=== PATIENT | male | born 1945 | race Caucasian/White ===

== ENCOUNTER → 2018-06-29 15:49 | Outpatient (CLI) | payer OTHER, SELFPAY ==
[2018-06-29 16:45] LABS: Hemoglobin A1C% w Est Avg Glu 8.1 % (4.0-6.0)
[2018-06-29 16:59] LABS: Alanine Aminotransferase 24 IU/L (21-72); Albumin 3.9 g/dL (3.5-5.0); Albumin Globulin Ratio 1.3 (1.0-2.8); Alkaline Phosphatase 67 U/L (38-126); Aspartate Aminotransferase 21 IU/L (17-59); BUN Creatinine Ratio 13.1 (6-22); Bilirubin Total 0.8 mg/dL (0.2-1.3); Blood Urea Nitrogen 21 mg/dL (9-20); Calcium 9.4 mg/dL (8.4-10.2); Carbon Dioxide 28 mmol/L (22-32); Chloride 102 mmol/L (98-107); Cholesterol 150 mg/dL (140-199); Estimated Glomerular Filt Rate 42.7 mL/min (>60); Globulin 3.1 g/dL (1.7-4.1); Glucose 185 mg/dL (80-110); HDL Cholesterol 34 mg/dL (40-60); HEMOLYSIS < 15 (0-50); LDL Cholesterol Calculated 82 mg/dL (<100); Potassium 4.8 mmol/L (3.4-5.1); Sodium 142 mmol/L (137-145); Triglycerides 168 mg/dL (35-150)
== END ==
PROVIDERS: Family Provider Family Medicine; PCP Family Medicine; Visit Provider Family Medicine
DX: E11.9 Type 2 diabetes mellitus without complications (principal); E78.2 Mixed hyperlipidemia; I10 Essential (primary) hypertension; I48.91 Unspecified atrial fibrillation; N19 Unspecified kidney failure
CPT/HCPCS: 36415; 80053; 80061; 83036

== ENCOUNTER → 2018-07-05 15:27 | Outpatient (CLI) | payer OTHER, SELFPAY | PROVIDERS: Family Provider Family Medicine; PCP Family Medicine; Visit Provider Family Medicine | DX: R30.0 Dysuria (principal) | CPT/HCPCS: 87086 ==

== ENCOUNTER → 2018-07-05 15:43 | Outpatient (CLI) | payer OTHER, SELFPAY ==
[2018-07-05 17:21] LABS: Prostate Specific Antigen Scrn 1.38 ng/mL (0.1-4.0)
== END ==
PROVIDERS: PCP Family Medicine; Visit Provider Family Medicine
DX: N19 Unspecified kidney failure (principal); Z12.5 Encounter for screening for malignant neoplasm of prostate
CPT/HCPCS: 36415; 87086; G0103

== ENCOUNTER → 2018-10-04 14:51 | Outpatient (CLI) | payer OTHER, SELFPAY ==
[2018-10-04 15:28] LABS: Add Manual Diff / Slide Review NO; Basophils Absolute Auto 100 /uL (0-100); Basophils Percent Auto 0.8 % (0-2); Eosinophils Absolute Auto 300 /uL (0-450); Eosinophils Percent Auto 2.3 % (2-4); Hemoglobin 13.7 g/dL (13.5-17.5); Lymphocytes Absolute Auto 2900 /uL (1100-4500); Lymphocytes Percent Auto 20.7 % (25-40); Mean Corpuscular HGB Conc 33.5 % (30-36); Mean Corpuscular Hemoglobin 29.3 PG (26-34); Mean Corpuscular Volume 87.5 fL (80-100); Monocytes Absolute Auto 1300 /uL (0-900); Monocytes Percent Auto 9.5 % (3-14); Neutrophils Absolute Auto 9300 /uL (1500-7000); Neutrophils Percent Auto 66.7 % (50-75); Platelet Count 235 X10^3/uL (150-400); Red Blood Cell Count 4.69 X10^6/uL (4.5-5.9); Red Cell Distribution Width 14.4 % (11.6-14.8); White Blood Cell Count 13.9 X10^3/uL (4.5-11.0)
[2018-10-04 16:11] LABS: Alanine Aminotransferase 28 IU/L (21-72); Albumin Globulin Ratio 1.2 (1.0-2.8); Alkaline Phosphatase 69 U/L (38-126); Aspartate Aminotransferase 20 IU/L (17-59); BUN Creatinine Ratio 15.3 (6-22); Bilirubin Total 0.9 mg/dL (0.2-1.3); Blood Urea Nitrogen 23 mg/dL (9-20); Calcium 9.4 mg/dL (8.4-10.2); Carbon Dioxide 28 mmol/L (22-32); Chloride 102 mmol/L (98-107); Estimated Glomerular Filt Rate 45.9 mL/min (>60); Globulin 3.3 g/dL (1.7-4.1); Glucose 202 mg/dL (80-110); HEMOLYSIS < 15 (0-50); Sodium 140 mmol/L (137-145); Total Protein 7.3 g/dL (6.3-8.2)
[2018-10-04 16:21] LABS: Potassium 5.5 mmol/L (3.4-5.1)
== END ==
PROVIDERS: Family Provider Family Medicine; PCP Family Medicine; Visit Provider Family Medicine
DX: E11.9 Type 2 diabetes mellitus without complications (principal)
CPT/HCPCS: 36415; 80053; 80162; 83036; 85025

== ENCOUNTER → 2018-11-13 16:22 | Outpatient (CLI) | payer OTHER, SELFPAY ==
--- NOTE | 2018-11-13 16:27 | DI.RAD.S_ITS ---
PROCEDURE: XR KNEE RT 3V INDICATIONS: pain TECHNIQUE: 3 views of the knee were acquired. COMPARISON: [facility], KNEE 1-2 VIEWS RIGHT, 03/04/2009, 16:17. [facility], KNEE 1-2 VIEWS LEFT, 04/16/2008, 16:25. FINDINGS: Bones: No fractures or dislocations. No suspicious bony lesions. Expected postsurgical alignment after right totally arthroplasty. Soft tissues: No joint effusion. No suspicious soft tissue calcifications. IMPRESSION: Normal alignment after right totally arthroplasty. Dictated by: Aidan Saeed M.D. on 11/13/2018 at 17:20 Approved by: Aidan Saeed M.D. on 11/13/2018 at 17:20
--- NOTE | 2018-11-13 16:27 | DI.RAD.S_ITS ---
PROCEDURE: XR KNEE LT 3V INDICATIONS: pain TECHNIQUE: 3 views of the knee were acquired. COMPARISON: [facility], KNEE 1-2 VIEWS RIGHT, 03/04/2009, 16:17. [facility], KNEE 1-2 VIEWS LEFT, 04/16/2008, 16:25. FINDINGS: Bones: No fractures or dislocations. No suspicious bony lesions. Left total knee arthroplasty. Soft tissues: No joint effusion. No suspicious soft tissue calcifications. IMPRESSION: Normal alignment after left total knee arthroplasty. No sign of device loosening or disruption. Dictated by: Aidan Saeed M.D. on 11/13/2018 at 17:20 Approved by: Aidan Saeed M.D. on 11/13/2018 at 17:21
== END ==
PROVIDERS: Family Provider Family Medicine; PCP Family Medicine; Visit Provider Family Medicine
DX: M25.562 Pain in left knee (principal); M25.561 Pain in right knee; Z96.653 Presence of artificial knee joint, bilateral
CPT/HCPCS: 73562

== ENCOUNTER → 2018-11-24 11:13 | Outpatient (CLI) | payer OTHER, SELFPAY ==
--- NOTE | 2018-11-24 11:15 | DI.NM.S_ITS ---
PROCEDURE: NM BONE 3 PHASE RADIOPHARMACEUTICAL: 20.3 mCi Tc-99m MDP IV. INDICATIONS: bilat knee pain TECHNIQUE: Multiple bone scintigrams were obtained after intravenous injection of Tc-99m MDP, including flow, blood pool, and delayed images centered at the bilateral knees. COMPARISON: [facility], CR, XR KNEE LT 3V, 11/13/2018, 16:30. [facility], CR, XR KNEE RT 3V, 11/13/2018, 16:30. FINDINGS: Photopenic defects from knee arthroplasty procedure are present bilaterally. There is normal blood flow and blood pool to the bilateral knees. Delayed uptake of radiotracer at the bilateral knees is within normal limits. IMPRESSION: No explanation for knee pain. No evidence of infection or loosening. Dictated by: Zamzam Wise M.D. on 11/24/2018 at 15:56 Approved by: Zamzam Wise M.D. on 11/24/2018 at 15:58
== END ==
PROVIDERS: PCP Family Medicine; Visit Provider Family Medicine
DX: M25.562 Pain in left knee (principal); M25.561 Pain in right knee; Z96.653 Presence of artificial knee joint, bilateral
CPT/HCPCS: 78315; A9503

== ENCOUNTER → 2019-01-02 15:33 | Outpatient (CLI) | payer OTHER, SELFPAY ==
[2019-01-02 16:28] LABS: Add Manual Diff / Slide Review NO; Basophils Absolute Auto 100 /uL (0-100); Basophils Percent Auto 0.5 % (0-2); Eosinophils Absolute Auto 200 /uL (0-450); Eosinophils Percent Auto 1.6 % (2-4); Hematocrit 37.6 % (41-53); Hemoglobin 12.8 g/dL (13.5-17.5); Lymphocytes Absolute Auto 2600 /uL (1100-4500); Lymphocytes Percent Auto 21.4 % (25-40); Mean Corpuscular HGB Conc 34.2 % (30-36); Mean Corpuscular Hemoglobin 29.7 PG (26-34); Monocytes Absolute Auto 1000 /uL (0-900); Monocytes Percent Auto 8.3 % (3-14); Neutrophils Absolute Auto 8300 /uL (1500-7000); Neutrophils Percent Auto 68.2 % (50-75); Platelet Count 228 X10^3/uL (150-400); Red Blood Cell Count 4.32 X10^6/uL (4.5-5.9); Red Cell Distribution Width 14.3 % (11.6-14.8); White Blood Cell Count 12.2 X10^3/uL (4.5-11.0)
[2019-01-02 16:41] LABS: Hemoglobin A1C% w Est Avg Glu 6.9 % (4.0-6.0)
[2019-01-02 17:00] LABS: BUN Creatinine Ratio 21.2 (6-22); Blood Urea Nitrogen 36 mg/dL (9-20); Calcium 9.4 mg/dL (8.4-10.2); Carbon Dioxide 26 mmol/L (22-32); Chloride 104 mmol/L (98-107); Estimated Glomerular Filt Rate 39.7 mL/min (>60); Glucose 171 mg/dL (80-110); HEMOLYSIS < 15 (0-50); Magnesium 1.7 mg/dL (1.6-2.3); Potassium 4.6 mmol/L (3.4-5.1); Sodium 139 mmol/L (137-145)
== END ==
PROVIDERS: PCP Family Medicine; Visit Provider Family Medicine
DX: I48.91 Unspecified atrial fibrillation (principal)
CPT/HCPCS: 36415; 80048; 83036; 83735; 85025

== ENCOUNTER → 2019-01-10 15:57 | Outpatient (CLI) | payer OTHER, SELFPAY ==
--- NOTE | 2019-01-10 15:59 | DI.RAD.S_ITS ---
PROCEDURE: XR HIP W PEL IF DONE LT 2V INDICATIONS: left hip pain TECHNIQUE: AP pelvis with lateral view(s) of the left hip(s). COMPARISON: [place], [place], MD BONE 3 PHASE, 11/24/2018, 11:19. FINDINGS: Bones: No fractures or dislocations. Pelvic ring appears intact. No suspicious bony lesions. Severe bilateral hip joint degeneration with ulyk-ut-exoo appearance. Lower lumbar spondylosis. Sclerotic focus measuring 2 cm projects in the intertrochanteric right femur, technically non-specific in the absence of prior studies. Soft tissues: The visualized bowel gas pattern is normal. No suspicious soft tissue calcifications. Scattered vascular calcifications bilaterally. IMPRESSION: Severe bilateral hip joint degeneration. Nonspecific proximal right femur intramedullary sclerotic focus. Technically cannot exclude metastatic or malignant possibilities. Dictated by: Peter Rosenberg M.D. on 01/10/2019 at 17:15 Approved by: Peter Rosenberg M.D. on 01/10/2019 at 17:18
== END ==
PROVIDERS: Family Provider Orthopaedic Surgery; PCP Family Medicine; Visit Provider Family Medicine
DX: M25.552 Pain in left hip (principal); M16.0 Bilateral primary osteoarthritis of hip; M47.816 Spondylosis without myelopathy or radiculopathy, lumbar region
CPT/HCPCS: 73502

== ENCOUNTER → 2019-03-02 11:09 | Outpatient (CLI) | payer OTHER, SELFPAY ==
[2019-03-02 12:11] LABS: Add Manual Diff / Slide Review NO; Basophils Absolute Auto 100 /uL (0-100); Basophils Percent Auto 0.4 % (0-2); Eosinophils Absolute Auto 300 /uL (0-450); Eosinophils Percent Auto 2.1 % (2-4); Hemoglobin 12.6 g/dL (13.5-17.5); Lymphocytes Absolute Auto 3200 /uL (1100-4500); Lymphocytes Percent Auto 23.6 % (25-40); Mean Corpuscular Hemoglobin 30.1 PG (26-34); Mean Corpuscular Volume 88.6 fL (80-100); Monocytes Absolute Auto 1600 /uL (0-900); Monocytes Percent Auto 11.6 % (3-14); Neutrophils Absolute Auto 8300 /uL (1500-7000); Neutrophils Percent Auto 62.3 % (50-75); Platelet Count 216 X10^3/uL (150-400); Red Blood Cell Count 4.18 X10^6/uL (4.5-5.9); Red Cell Distribution Width 14.5 % (11.6-14.8); White Blood Cell Count 13.4 X10^3/uL (4.5-11.0)
[2019-03-02 12:16] LABS: Hemoglobin A1C% w Est Avg Glu 6.6 % (4.0-6.0)
[2019-03-02 12:23] LABS: Carbon Dioxide 27 mmol/L (22-32); Chloride 102 mmol/L (98-107); HEMOLYSIS < 15 (0-50); Potassium 4.6 mmol/L (3.4-5.1); Sodium 140 mmol/L (137-145)
[2019-03-02 17:42] LABS: BUN Creatinine Ratio 18.9 (6-22); Blood Urea Nitrogen 34 mg/dL (9-20); Calcium 9.8 mg/dL (8.4-10.2); Carbon Dioxide 26 mmol/L (22-32); Chloride 102 mmol/L (98-107); Estimated Glomerular Filt Rate 37.2 mL/min (>60); Glucose 116 mg/dL (80-110); HEMOLYSIS < 15 (0-50); Potassium 4.7 mmol/L (3.4-5.1); Sodium 140 mmol/L (137-145)
== END ==
PROVIDERS: PCP Family Medicine; Visit Provider Orthopaedic Surgery
DX: M16.10 Unilateral primary osteoarthritis, unspecified hip (principal); R73.9 Hyperglycemia, unspecified; I10 Essential (primary) hypertension; N19 Unspecified kidney failure
CPT/HCPCS: 36415; 80048; 80051; 83036; 85025; 93005; 93010

== ENCOUNTER 2019-04-09 11:03 | Inpatient (IN) | payer OTHER, SELFPAY ==
[2019-03-26] MEDS: LACTATED RINGERS 1,000 ML 42 ML IV (09:20)
--- NOTE | 2019-03-26 10:28 | SUR.PREOP ---
pts BS = 234, INR = 1.3, DR MILES NOTIFIED OF BS AND INR, PROCEDURE CANCELLED AND TO BE RESCHEDULED DUE TO VY=452.
[2019-04-09] VITALS (12 sets, daily range): BP systolic 101–171; BP diastolic 50–78; PULSE 45–55; RESP 12–18; TEMP 36.3–37; O2SAT 93–100; BMI 32.0
--- NOTE | 2019-04-09 13:11 | DI.RAD.S_ITS ---
PROCEDURE: XR PELVIS 1-2V INDICATIONS: POST OPERATIVE TOTAL LEFT HIP TECHNIQUE: 1 view of the lower pelvis acquired. COMPARISON: None. FINDINGS: Bones: Patient is status post left hip arthroplasty, with hardware components in expected positions. The hip joint appears congruent. Moderate to severe right hip joint osteoarthritis is seen. The visualized bony structures appear intact. Soft tissues: Overlying postoperative changes are noted. No suspicious soft tissue densities. IMPRESSION: Postop changes from left total hip arthroplasty with anatomic alignment. Dictated by: Mina Dorado M.D. on 04/09/2019 at 19:05 Approved by: Mina Dorado M.D. on 04/09/2019 at 19:05
[2019-04-09 13:54] LABS: INR 1.5 (0.9-1.3)
[2019-04-09] MEDS: LACTATED RINGERS 1,000 ML 42 ML IV (14:18)
[2019-04-09] MEDS: ACETAMINOPHEN 325 MG TABLET 975 MG PO ×2 (14:23→20:38)
[2019-04-09] MEDS: PREGABALIN 75 MG CAPSULE PO (14:23)
--- NOTE | 2019-04-09 15:21 | PM.PREOP ---
Pre-operative Note Interval Note History & Physical reviewed/Exam performed by Physician: Yes Changes to H&P: No
--- NOTE | 2019-04-09 15:22 | PM.HP.1 ---
History of Present Illness History of Present Illness Date Patient Seen: 04/09/19 Time Patient Seen: 15:22 Chief complaint: [id number] Narrative: A 73-year-old male admitted today for elective left total hip arthroplasty. Procedures actually scheduled for a couple weeks ago, however, the patient's blood sugar was above the allowed limit and therefore the case was rescheduled. History and physical from that date is unchanged. He has no new complaints. 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) Surgical History History of arthroplasty of both knees (Acute) Status post fusion of wrist (Acute) Social History household members: spouse Smoking Status: Former smoker alcohol intake: current Family & Social History Social History: household members spouse Prior Living Arrangements House Safety & Behavioral: Feels Safe in Current Yes Environment Been Physically Hurt or No Threatened By a Person Suicidal Ideation Description None Suicide Plan Description No Plan Tobacco & Substance use: Smoking Status Former smoker Smoking packs per day 4 alcohol intake current alcohol intake frequency 0-2 drinks per day Substance Use Type does not use Meds Home Medications and Allergies Home Medications Medication Instructions Recorded Confirmed Type prothrombin time test strips #18 each 02/21/18 01/02/19 Rx lancets 23 gauge #50 each 03/01/18 01/02/19 Rx atenolol 25 mg tablet 25 mg PO QDAY #90 tab 10/04/18 04/09/19 Rx digoxin 250 mcg tablet 0.125 mg PO Q DAY #90 tab 10/04/18 04/09/19 Rx glyburide 5 mg tablet 10 mg PO BID #360 tab 10/04/18 04/09/19 Rx hydrochlorothiazide 12.5 mg tablet 12.5 mg PO DAILY #90 tab 01/02/19 04/09/19 Rx clotrimazole-betamethasone 1 applic TOPICAL BID PRN 03/14/19 04/09/19 History [Lotrisone] metformin 1,000 mg PO BID 03/14/19 04/09/19 History simvastatin [Zocor] 20 mg PO DAILY 03/14/19 04/09/19 History blood sugar diagnostic #100 each 03/16/19 Rx propafenone 150 mg tablet 450 mg PO BID #180 tab 03/22/19 04/09/19 Rx warfarin 5 mg tablet See Rx Instructions .ROUTE 03/23/19 04/09/19 Rx .COMPLEX #110 tablet Allergies Allergy/AdvReac Type Severity Reaction Status Date / Time No Known Drug Allergies Allergy Verified 03/26/19 07:59 Review of Systems Review of Systems ROS Unobtainable: All systems reviewed & are unremarkable except as noted in HPI and below Exam Vital Signs (past 8 hours): - 04/09/19 14:00 Temperature 98.6 F Pulse Rate 54 L Respiratory Rate 15 Blood Pressure 171/78 H Pulse Oximetry 98 Oxygen Delivery Method Room Air Const General: healthy appearing Nutritional Appearance: well nourished Orientation: alert and oriented x3 HENMT Head: normal to inspection, normocephalic and atraumatic Resp Effort & Inspection: normal respiratory effort Auscultation: clear to auscultation bilaterally Cardio Rate: regular rate Rhythm: regular rhythm GI Inspection: normal to inspection Palpation: soft Auscultation: normal bowel sounds Objective Labs Labs: Laboratory Results - last 24 hr 04/09/19 13:34 PT 18.0 H INR 1.5 H Assessment & Plan Assessment & Plan narrative: 73-year-old male admitted for elective left total hip arthroplasty. History of anticoagulation and his current INR is 1.5. Plan to proceed as scheduled.
[2019-04-09] MEDS: CEFAZOLIN 2 GM/100 ML FROZ.PIGGY IV ×2 (16:12→23:47)
[2019-04-09] MEDS: TRANEXAMIC ACID 1,000 MG VIAL 2000 MG INJ ×2 (16:24→17:33)
--- NOTE | 2019-04-09 16:48 | SUR.OPER ---
Lateral on padded OR bed. Gel axillary roll. Arms secured on padded armboard with pillow supporting top arm. Padded hip positioner braces x4 - anterior and posterior chest and pelvis. Additional gel pad used anterior pelvis. Gel pad under bottom leg from knee to foot and secured with tape over sheet.
[2019-04-09] MEDS: KETOROLAC 30 MG/ML VIAL IV (16:54)
[2019-04-09] MEDS: MORPHINE 4 MG/ML INJ INJ (16:54)
[2019-04-09] MEDS: ROPIVACAINE 0.5% PF 5 MG/ML 20ML VIAL 60 ML INJ (17:00)
--- NOTE | 2019-04-09 17:57 | PM.OP.1 ---
Operative Date/Time/Diagnoses Date of procedure: 04/09/19 Time of procedure: 17:58 Pre-op diagnosis: LEFT HIP DEGENERATIVE JOINT DISEASE Post-op diagnosis: same Procedure & Clinicians Procedure: Left total hip arthroplasty (CPT code 07942 with rehabilitation assistant) Same procedure as scheduled: Yes Indications: Patient is an 73-year-old male with severe left hip DJD. The patient has pain with activities and at rest, limited ambulation and activity tolerance, difficulties with ADLs, and failure of conservative treatment. We have discussed the nature of condition, treatment options, risks and benefits, and patient elects to proceed with total hip arthroplasty and gives informed consent. Surgeon: Aries Del Real Ribbon Inker: Yaw Jaquez Anesthesia Type: General and Spinal Operative Notes Closure Type: primary Specimen(s): none sent Prosthetic devices, grafts, tissues, transplants, or devices: Acetabulum: Larsen and Nephew R3 acetabular component size 60 mm Femoral component: Larsen [employer] Nephew Anthology stem size 11 with standard offset Femoral head: 36 mm + 4 cobalt chrome Estimated Blood Loss (mL): 150 Blood products transfused: none Procedure in detail: After satisfaction induction of anesthetic, and administration of IV antibiotics, the patient was positioned in the lateral decubitus position with all bony prominences well padded and pelvic position secured using a hip business intelligence architect positioning device. Left hip and lower extremity prepped and draped in the usual sterile fashion, 1st dose of intravenous tranexamic acid was administered, then a longitudinal incision was created centered over the greater trochanter and carried sharply through the skin and subcutaneous tissues down to the fascia yo which was divided longitudinally and retracted with a Charnley retractor. External rotators visualize, cut, tagged, and retracted posteriorly, then the capsule was cut in a T-type fashion with the corners tagged and retracted. Hip was dislocated and femoral neck cut made according to preoperative templating. Acetabular retractors then placed, and the acetabular labrum and osteophytes were excised. The acetabulum was then sequentially reamed to 59 mm with an excellent circumferential ream and fit with the trial. The trial component was removed and a permanent size 60 mm Larsen and Nephew R3 acetabular component was selected, positioned, and impacted with satisfactory position and fixation achieved. Permanent liner was then inserted with the elevated lip directed posteriorly. Soft tissue then removed off the lateral femoral neck in the lateral neck was entered using a box osteotome. T-handled reamers placed down the canal followed by sequential broaching to 11 with the final broach left in place for trial reduction which demonstrated excellent leg length, range of motion, and stability characteristics with a 36 mm + 4 trial ball. The trial and broach were removed, and a permanent size 11 Larsen and Nephew Anthology stem was selected and inserted with excellent position and fixation achieved. Another trial reduction yielded the above characteristics so the trial ball was exchanged for a permanent 36 mm +4 cobalt chrome ball. The hip was irrigated and reduced and excellent leg length range of motion and stability characteristics were achieved and maintained. Periarticular tissues were infiltrated with ropivacaine, Toradol, and morphine. The hip was copiously irrigated, and the capsule repaired with #2 Ethibond, and the piriformis was repaired back to the greater trochanter with the same. Fascia yo closed with interrupted #1 Ethibond sutures, and the subcutaneous tissues were closed in 2 layers of 0 Vicryl and 2 0 Vicryl. Skin was closed with rudy and sterile dressings applied. Second dose of tranexamic acid was administered intravenously, and the anesthetic was terminated. Complications: none Post-operative Condition: stable Disposition: PACU Plan for aftercare: Patient will be admitted to the acute care [facility], and anticipate discharge on postop day 1-2 with follow-up in office in 10-14 days. Outpatient physical therapy will be arranged and patient will continue to observe posterior hip precautions. Patient will resume his routine warfarin post-op.
[2019-04-09] MEDS: LACTATED RINGERS 1,000 ML 125 ML IV (18:48)
--- NOTE | 2019-04-09 18:52 | PC.ADMIT ---
DECLINED [address] Admission Note: The patient,Andre Castro,73 y/o, was given written information regarding hospital policies, unit procedures and contact persons. Patient's smoking status: Former smoker. Vital Signs - 8 hr 04/09/19 14:00 04/09/19 17:57 04/09/19 18:02 Temperature 98.6 F 97.5 F L Pulse Rate 54 L 49 L 52 L Respiratory Rate 15 12 17 Blood Pressure 171/78 H 106/58 L 110/58 L Pulse Oximetry 98 93 95 04/09/19 18:07 04/09/19 18:13 04/09/19 18:25 Temperature 97.3 F L Pulse Rate 50 L 48 L 47 L Respiratory Rate 12 12 18 Blood Pressure 101/50 L 101/50 L 140/66 Pulse Oximetry 95 94 97 Patient brought over from pacu in bed. Awake and alert. Lf hip drsg cdi, and patient able to wiggle toes Rt>Lf. Has numbness to left leg. Denies pain at this time.
[2019-04-09] MEDS: PROPAFENONE 150 MG TABLET 450 MG PO (20:38)
[2019-04-09] MEDS: METFORMIN HCL 500 MG TABLET 1000 MG PO (20:39)
--- NOTE | 2019-04-09 23:39 | PC.NURSE ---
Shift note: Andre reports no pain, denies numbness to legs. VS stable, HR is nikkie at 45-55 bpm. RA oxygen 98-100% Tolerating regular foods, CBG stable. IVF infusing to LFA with no difficulty. Aquacel drsg to left posterior hip is CDI. CMS intact. Wearing bilateral SCD's.
--- NOTE | 2019-04-10 01:29 | PC.NURSE ---
Addendum entered by Rosa Tang R.N. 04/10/19 03:25: 0300 Gotten out of bed to urinate and able to walk to bathroom/back to bed with walker and 1 assist. States hurt much less than pre-op. Currently states pain is still only an ache and rates severity as 1/10 and not needing any pain medication. Original Note: 0000 Patient is alert and oriented. Breath sounds CTA with RA sat of 98%. HRR but bradycardic in 50's. BP elevated at 162/72. Denies nausea. BT present but denies flatus. Has not yet voided since return from surgery. Does report he has prostate problems so normally has frequency and hesitancy. Discussed plan is unable to void by 0200 and patient verbalizes understanding. Is able to move self in bed. Dressing to left hip is CDI. States has ache in left hip but denies need for pain medication; ice applied for comfort. Has chronic neuropathy in bilateral feet/ankles with no change in sensation otherwise CMS is intact. Is weak in bilateral legs left > right and is unable to lift leg off bed. 2+ edema in left foot/ankle and 1+ in right. Wearing bilateral SCD's. Fall risk score is high and bed alarm is activated.
[2019-04-10 02:55] VITALS: BP 144/77; PULSE 60; RESP 18; TEMP 36.2; O2SAT 96
[2019-04-10] MEDS: LACTATED RINGERS 1,000 ML 125 ML IV (03:22)
[2019-04-10 07:06] LABS: Hematocrit 31.6 % (41-53); Hemoglobin 10.7 g/dL (13.5-17.5)
[2019-04-10 07:25] VITALS: BP 151/74; PULSE 55; RESP 18; TEMP 36.6; O2SAT 99
[2019-04-10] MEDS: glyBURIDE 5 MG TABLET 10 MG PO (08:36)
[2019-04-10 08:37] VITALS: PULSE 62
[2019-04-10] MEDS: DIGOXIN 0.125 MG TABLET PO (08:37)
[2019-04-10] MEDS: WARFARIN 7.5 MG TABLET PO (08:37)
[2019-04-10] MEDS: hydroCHLOROthiazide 12.5 MG CAPSULE PO (08:38)
[2019-04-10] MEDS: PROPAFENONE 150 MG TABLET 450 MG PO (08:38)
[2019-04-10] MEDS: SIMVASTATIN 20 MG TABLET PO (08:38)
[2019-04-10] MEDS: CEFAZOLIN 2 GM/100 ML FROZ.PIGGY IV (08:42)
[2019-04-10] MEDS: ATENOLOL 25 MG TABLET PO (08:43)
[2019-04-10] MEDS: ACETAMINOPHEN 325 MG TABLET 975 MG PO ×2 (08:43→13:52)
[2019-04-10] MEDS: METFORMIN HCL 500 MG TABLET 1000 MG PO (08:43)
[2019-04-10] MEDS: ASPIRIN EC 81 MG TABLET PO (08:45)
[2019-04-10 09:11] VITALS: PULSE 60; RESP 18; O2SAT 96
--- NOTE | 2019-04-10 09:14 | CM.DANOTE ---
DCP: Case received, EMR reviewed and met with patient. Introduced self and role. Was able to obtain baseline health history from patient. , Key, also at bedside. DCP assessment/template completed with information currently available. Patient is a 73 year old male who admitted yesterday morning to the care of the orthopedic team. PCP: Dr. Curiel. Payer: Confirmed: [facility]. Patient came to the hospital for a surgical procedure. He had left total hip arthroplasty. Patient has history of osteoarthritis of his left hip. Met with patient and in room. Patient is alert and oriented, driving, and has been using a cane at home prior to surgery. He has not yet worked with physical therapy team. He has outpatient P.T. set up. P: Patient is to be discharged home today, but is pending him working with physical therapy. He will be utilizing outpatient physical therapy as well. Evelyn Morales RN/Community Director
--- NOTE | 2019-04-10 09:50 | P.DS_ITS ---
History of Present Illness History of Present Illness Date Patient Seen: 04/10/19 Time Patient Seen: 09:51 Chief complaint: [id number] Narrative: Please see HPI previously recorded in the chart. Discharge Providers Provider Date of admission: 04/09/19 11:03 Discharge Date: 04/10/19 Primary care physician: Efrain Curiel MD Consults: 04/09/19 18:31 Consult to Discharge Planning Routine Comment: Consult to Physical Therapy Evaluate & Treat Comment: Physician Instructions: post op SHWETHA protocol Consult to Respiratory Therapy Evaluate & Treat Comment: Physician Instructions: Evaluate and treat Discharge provider: Annamarie Hernández PA-C Summary Hospital Course Discharge Diagnosis: S/p Left total hip arthroplasty Hospital Course: Patient is an 73-year-old male with severe left hip DJD. The patient had pain with activities and at rest, limited ambulation and activity tolerance, difficulties with ADLs, and failure of conservative treatment. Discussed the nature of condition, treatment options, risks and benefits, and hugh chacon elected to proceed with total hip arthroplasty and he gave informed consent. He was taken to the operating room 04/09/19 and underwent left posterior hip replacement with Dr. Del Real which he tolerated well without complications. Afterwards he was taken to the acute care floor where he has been progressing well post operatively. He has ambulated about the room without issue. His pain has been minimal and well controlled. He has been voiding independently and tolerated a diet. He denies any chest pain, shortness of breath, or calf tenderness. He takes Warfarin and is being bridged with Lovenox which he will be discharged to home with. He has a good support system at home and will be disch arged to the care of his and grandson. He has home supply of Oxycodone which was given preoperatively. He is medically stable for discharge to home at this time, pending review by physical therapy later today. Status at Discharge Cognitive/behavioral status at discharge: oriented Functional status at discharge: uses cane/walker Overall status at discharge: patient is progressing back to baseline Exam Vital Signs (past 8 hours): - 04/10/19 02:55 04/10/19 07:25 04/10/19 08:37 Temperature 97.2 F L 97.8 F Pulse Rate 60 55 L 62 Respiratory Rate 18 18 Blood Pressure 144/77 H 151/74 H Pulse Oximetry 96 99 04/10/19 09:11 Temperature Pulse Rate 60 Respiratory Rate 18 Blood Pressure Pulse Oximetry 96 Oxygen Delivery Method Room Air Oxygen Flow Rate 0 Narrative Exam Narrative: 73 year old male resting comfortably in bed. Alert and oriented in no acute distress. Bulky dressing in place over left hip is CDI. Motor intact distally. Palpable pedal pulse. Sensation decreased, but patient states this is his baseline due to peripheral neuropathy. Calves soft, compressible. Objective Labs Result Diagrams: 04/10/19 06:37 Labs: Laboratory Results - last 24 hr 04/09/19 04/10/19 13:34 06:37 Hgb 10.7 L Hct 31.6 L PT 18.0 H INR 1.5 H Discharge Plan Discharge Plan Patient Disposition: Home Discharge comment: Discharge to home pending PT Discharge Med Rec/Prescriptions Prescriptions: New acetaminophen 325 mg Tablet 975 mg PO TID Qty: 60 RF: 0 enoxaparin [Lovenox] 40 mg/0.4 mL Syringe 40 mg subcut DAILY 2 Days Qty: 2 RF: 0 Continued (DME) prothrombin time test strips [Coaguchek XS] strip See Dose Instructions .ROUTE .MEDSUPPLY Qty: 18 RF: 5 (DME) lancets [Acti-Dakota Lancets] 23 gauge misc See Dose Instructions .ROUTE .MEDSUPPLY Qty: 50 RF: 3 (DME) Blood Glucose Test strip See Rx Instructions .ROUTE .MEDSUPPLY Qty: 100 RF: 0 propafenone 150 mg tablet 450 mg PO BID Qty: 180 RF: 0 warfarin 5 mg tablet See Rx Instructions .ROUTE .COMPLEX Qty: 110 RF: 0 digoxin [Lanoxin] 250 mcg tablet 0.125 mg PO Q DAY Qty: 90 RF: 3 atenolol 25 mg tablet 25 mg PO QDAY Qty: 90 RF: 3 glyburide 5 mg tablet 10 mg PO BID Qty: 360 RF: 3 hydrochlorothiazide 12.5 mg tablet 12.5 mg PO DAILY Qty: 90 RF: 3 simvastatin [Zocor] 20 mg tablet 20 mg PO DAILY RF: 0 metformin 1,000 mg tablet 1,000 mg PO BID RF: 0 clotrimazole-betamethasone [Lotrisone] 1-0.05 % cream 1 applic TOPICAL BID PRN (Reason: Rash) RF: 0 Follow up/Referrals: Aries Del Real MD [Physician] - As previously scheduled Provider Discharge Instructions Diet: Diet as Tolerated Activity: Weight bear as tolerated. Please use walker or cane for support. Cold/Heat Therapy: Ice packs as needed. Other treatments: Please see [facility] guide Skin/Wound/Dressing Care Report to your healthcare provider any signs of infection, such as:: chills, fever, night sweats, unusual drainage and unusual redness Dressing: Dressing is to remain in place. Please call the office if dressing becomes saturated. Visit Report/Discharge Packet Instructions: DI for Hip Replacement Discharge Data Primary Care Provider: Efrain Curiel VTE Deep Vein Thrombosis/Pulmonary Embolism Present on Admission: No
--- NOTE | 2019-04-10 09:52 | PT.IIE ---
Current Diagnoses Unilateral primary osteoarthritis, left hip (04/09/19) Surgery Performed Operation Date: 03/26/19 11:15 <No data on this case meets the specified criteria> Operation Date: 04/09/19 13:45 Actual Procedures p Total Hip Arthroplasty(Left) - Aries Del Real MD Surgical History (Last Reviewed 04/09/19 @ 15:23 by Aries Del Real MD) History of arthroplasty of both knees (Acute) Status post fusion of wrist (Acute) Medical History (Last Reviewed 04/09/19 @ 15:23 by Aries Del Real MD) Arthritis (Acute) Cellulitis (Acute) Diabetes (Acute) Diabetic neuropathy (Acute) Easy bruisability (Acute) Edema (Acute) Enlarged prostate (Acute) HLD (hyperlipidemia) (Acute) HTN (hypertension) (Acute) Osteoarthritis (Acute) 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 Social History Household Members spouse Living Arrangements House Number of Floors (Floors) One Floor Number of Stairs To Enter/Railing? 1 step entry Home Environment Standard Height Toilet,Walk in Shower,Built-In Shower Seat Home Equipment Front Wheel Walker,Four Wheel Walker,Straight Cane,Crutches, Grab Bars In Shower Additional Social History Comment pt has a safety toilet frame at home; has a lift chair pt will also has his grandson to assist him at home M2 PT-IP Current Condition Start: 04/10/19 10:55 Freq: NEEDED Status: Active Protocol: Document 04/10/19 09:52 AB (Rec: 04/10/19 11:07 AB [id number]) Physical Therapy Current Condition Current Condition Evaluation Date 04/10/19 Treatment Diagnosis s/p LTHA posterior approach; difficulty in walking Onset Date 04/09/19 Precautions Posterior Hip Precautions No Hip Flexion > 90 degrees,No Hip Internal Rotation,No Hip Adduction Weight Bearing Status Weight Bearing Status Weight Bear as Tolerated M3 PT-IP Subjective Start: 04/10/19 10:55 Freq: NEEDED Status: Active Protocol: Document 04/10/19 09:52 AB (Rec: 04/10/19 11:07 [id number]) Subjective Physical Therapy Visit Type Type Initial Evaluation Visit Start Time 09:52 Visit Stop Time 10:40 Total Visit Minutes 48 Number of COMPUTER FIELD TECHNICIAN Visits 0 Physical Therapy Visit Comments Patient Comments pt agreeable to do PT Therapy Pain Assessment Pain When Pain Assessed At Rest Pain Present Pain Present Pain Reported Location Left Hip Intensity 2 Scale Used increases to 6/10 with mobility Pain Management Techniques Re-positioning,Timing of Activity with Medications M4 PT-IP Mobility and Gait Start: 04/10/19 10:55 Freq: NEEDED Status: Active Protocol: Document 04/10/19 09:52 AB (Rec: 04/10/19 11:07 [id number]) PT-Bed Mobility Assessment Supine to Sit Supine to Sit Minimal Assistance Sit to Supine Sit to Supine Standby Assistance Scooting Scooting to Edge of Bed Standby Assistance PT-Transfer Assessment Sit to and From Stand Sit to and from Stand Contact Guard Assistance Equipment Transfer Assistive Device Gait Belt,Front Wheeled Walker Orthotic/Prosthetic Devices or Brace: No Transfers Transfer Destination Toilet Transfer Technique pt ambulated using FWW Transfer Ability Level of Assist Standby Assistance,Contact Guard Assistance Comments Mobility Comments pt completed supine to sit min A and cues. pt required assistance with LLE movement. pt stated that he might use his lift chair to sleep on. pt completed sit to stand CGA and cues x 2 reps. pt required cues to maintain hip precautions. pt completed ambulation in the hallway and stair climbing and request to use the toilet afterwards. pt was able to maintain standing balance using FWW for support SBA. pt ambulated out of the toilet towards the sink SBA and was able to complete handwashing using FWW for support SBA. pt does not want to sit on the chair. stated that there is nothing at home with a chair that low that he is going to use at home. pt went back to bed. completed sit to supine SBA. positioned pt in bed. call light and table placed within reach. Gait Assessment Gait Gait Assistance Required: Standby Assistance,Contact Guard Assist Distance (Feet) 150 Able to Maintain Weight Bearing Status Yes During Gait Assistive Devices Assistive Device Gait Belt,Front Wheeled Walker Orthotic/Prosthetic Devices or Brace: No Gait Deviations General Gait Pattern Antalgic Factors Limiting Gait Function Factors Limiting Gait Function Decreased Activity Tolerance, Decreased Strength,Limited Range of Motion,Pain,Poor Balance Stair Climbing Assessment Evaluation Level of Assist On Stairs Contact Guard Assistance Devices Stair Climbing Assistive Devices Front Wheel Walker Technique/Endurance Stair Climbing Direction Ascend and Descend Stair Climbing Technique Step to Step Number of Steps Climbed 1 Query Text: Stair Climbing Set # Repetitions (reps) 2 PT-Balance Assessment Sitting Balance and Reactions Static Sitting Balance Ability Good Dynamic Sitting Balance Ability Good Standing Balance and Reactions Static Standing Balance Ability Fair Dynamic Standing Balance Ability Fair Device Used FWW M5 PT-IP Objective Assessments Start: 04/10/19 10:55 Freq: NEEDED Status: Active Protocol: Document 04/10/19 09:52 AB (Rec: 04/10/19 11:07 [id number] Orientation Orientation/Cognition Level of Alertness Alert Orientation Name,Age,Birthday,Month,Date, Year,Day of Week,Place, Situation Language Function Ability No Deficits Noted Safety Awareness Understands Safety Issues Memory Description No Deficits Noted Gross Range of Motion Lower Extremity ROM Assessment Within Functional Limits Strength Lower Extremity Strength Assessment Left Impaired Hip 2+/5 Knee 3+/5 Coordination Assessment Gross Coordination Gross Coordination WNL Sensation Assessment Sensation Gross Sensation WNL Muscle Tone Muscle Tone WNL Yes M6 PT-IP Treatment Start: 04/10/19 10:55 Freq: NEEDED Status: Active Protocol: Document 04/10/19 09:52 AB (Rec: 04/10/19 11:07 [id number]) Physical Therapy Treatment Exercises Exercises Quad Sets,Heel Slides Education Education Provided Precautions,Weight Bearing Status,Post-Op Packet,Safety M7 PT-IP Assessment and Plan Start: 04/10/19 10:55 Freq: NEEDED Status: Active Protocol: Document 04/10/19 09:52 AB (Rec: 04/10/19 11:07 [id number] PT Summary Assessment and Plan Potential Rehabilitation Potential Good Status of Condition at Evaluation Stable Summary Impairments Pain,ROM,Strength,Balance, Coordination,Sensation,Tone, Cognition,Bed Mobility, Transfers,Gait,Activity Tolerance Assessment Summary pt requiring SBA to CGA with mobility but required min A for supine to sit with LLE. pt plans to go home with spouse and grandson to assist him. pt may go home when medically stable. Goals Bed Mobility Goal Independent Transfer Goal Independent,Front Wheeled Walker Gait Goal Independent,Front Wheel Walker Gait Distance 200 Other Goals up/down 1 platform step mod I Days to Meet Goals 3 Frequency of Treatment Frequency Of Treatment Twice a Day Treatment Plan Physical Therapy Treatment Plan Bed Mobility Training,Transfer Training,Gait Training, Therapeutic Exercise,Balance Retraining,Post Op Education, Discharge Planning,Hot or Cold Pack,Neuromuscular Re-ed, Coordination Retraining,Manual Therapy Recommendations To Nursing Amount of Assist Needed 1 Person Assist Discharge Recommendations PT Discharge Recommendations Home with Assistance, Outpatient PT
--- NOTE | 2019-04-10 10:59 | PC.NURSE ---
Addendum entered by Danelle Traylor R.N. 04/10/19 14:54: Patient voided without any blood prior to discharge home. Addendum entered by Danelle Traylor R.N. 04/10/19 14:25: Discharge home: Patient was cleared by PT to d/c home. IV dc'd intact. Reviewed all instructions with patient thoroughly. Given script for Lovenox and did Lovenox teaching. Patient said that either he, or his , will be able to give Lovenox at home (for 2 more doses). Pain well-managed with Tylenol, and he said he filled another script (for pain) pre-surgery per [facility] protocol. Verbalized understanding of all d/c info and stated no further questions. All personal belongings collected and sent with patient. Wheeled out to private vehicle by nursing staff. Original Note: Hematuria: Patient voided into toilet and urine was clear yellow. However, at the end of the void there were about 5-6 small drops of blood in the toilet. Patient reports this has not happened to him before. This keno writer called and relayed same info to LORNA Hernández. She said to monitor, and if he has blood next time he voids to send a UA, monitor at home, and follow up with PCP if the issue continues.
[2019-04-10 11:45] VITALS: BP 164/74; PULSE 60; RESP 18; TEMP 36.6; O2SAT 98
[2019-04-10] MEDS: ENOXAPARIN 40 MG/0.4 ML SYRINGE SUBCUT (12:36)
== END 2019-04-10 14:30 | disposition home or self-care (01) | DRG 470 ==
PROVIDERS: Admitting Provider Orthopaedic Surgery; PCP Family Medicine; Visit Provider Orthopaedic Surgery
PROC: 0SRB0JZ Replacement of Left Hip Joint with Synthetic Substitute, Open Approach (ICD-10-PCS; CPT 27130; principal; 2019-03-26 11:15)
DX: M16.12 Unilateral primary osteoarthritis, left hip (principal); I45.2 Bifascicular block; I48.0 Paroxysmal atrial fibrillation; Z96.653 Presence of artificial knee joint, bilateral; I10 Essential (primary) hypertension; E11.9 Type 2 diabetes mellitus without complications; Z87.891 Personal history of nicotine dependence; Z79.84 Long term (current) use of oral hypoglycemic drugs; Z79.01 Long term (current) use of anticoagulants
CPT/HCPCS: 36415; 72170; 82962; 85014; 85018; 85610; 94760; 94762; 97161; 97530; C1776; J0690; J1650; J1885; J2250; J2270; J2405; J2704; J3010

== ENCOUNTER → 2019-11-05 16:25 | Outpatient (CLI) | payer MEDICARE, SELFPAY ==
[2019-04-09 18:35] VITALS: BMI 32.0
[2019-11-05 17:18] LABS: Hemoglobin A1C% w Est Avg Glu 7.4 % (4.0-6.0)
== END ==
PROVIDERS: PCP Family Medicine; Referring Provider Family Medicine; Visit Provider Family Medicine
DX: E11.9 Type 2 diabetes mellitus without complications (principal); Z79.899 Other long term (current) drug therapy
CPT/HCPCS: 36415; 83036

== ENCOUNTER → 2019-12-17 13:09 | Outpatient (CLI) | payer MEDICARE, SELFPAY ==
[2019-04-09 18:35] VITALS: BMI 32.0
--- NOTE | 2019-12-17 13:11 | DI.RAD.S_ITS ---
PROCEDURE: XR CHEST 2V INDICATIONS: Shortness of breath TECHNIQUE: 2 views of the chest were acquired. COMPARISON: None. FINDINGS: Surgical changes and devices: None. Lungs and pleura: Lungs are mildly edematous. No pleural effusions or pneumothorax. Mediastinum: Mediastinal contours are normal. Heart size is mildly enlarged. Bones and chest wall: No suspicious bony abnormalities. Soft tissues appear unremarkable. IMPRESSION: Mild CHF pattern with edema in the lung parenchyma and mild cardiomegaly. Dictated by: Aidan Saeed M.D. on 12/17/2019 at 14:20 Approved by: Aidan Saeed M.D. on 12/17/2019 at 14:20
[2019-12-17 13:45] LABS: Add Manual Diff / Slide Review NO; Basophils Absolute Auto 100 /uL (0-100); Basophils Percent Auto 0.6 % (0-2); Eosinophils Absolute Auto 100 /uL (0-450); Eosinophils Percent Auto 1.5 % (2-4); Hematocrit 40.3 % (41-53); Hemoglobin 13.4 g/dL (13.5-17.5); Lymphocytes Absolute Auto 1400 /uL (1100-4500); Lymphocytes Percent Auto 14.9 % (25-40); Mean Corpuscular HGB Conc 33.3 % (30-36); Mean Corpuscular Hemoglobin 29.9 PG (26-34); Mean Corpuscular Volume 89.7 fL (80-100); Monocytes Absolute Auto 1000 /uL (0-900); Monocytes Percent Auto 10.8 % (3-14); Neutrophils Absolute Auto 6900 /uL (1500-7000); Neutrophils Percent Auto 72.2 % (50-75); Platelet Count 178 X10^3/uL (150-400); Red Blood Cell Count 4.49 X10^6/uL (4.5-5.9); Red Cell Distribution Width 16.3 % (11.6-14.8); White Blood Cell Count 9.6 X10^3/uL (4.5-11.0)
[2019-12-17 13:53] LABS: Hemoglobin A1C% w Est Avg Glu 6.9 % (4.0-6.0)
[2019-12-17 14:02] LABS: Alanine Aminotransferase 20 IU/L (<50); Albumin 3.7 g/dL (3.5-5.0); Albumin Globulin Ratio 1.1 (1.0-2.8); Alkaline Phosphatase 188 U/L (38-126); Aspartate Aminotransferase 29 IU/L (17-59); BUN Creatinine Ratio 17.9 (6-22); Bilirubin Total 1.3 mg/dL (0.2-1.3); Blood Urea Nitrogen 27 mg/dL (9-20); Calcium 9.3 mg/dL (8.4-10.2); Carbon Dioxide 25 mmol/L (22-32); Chloride 103 mmol/L (98-107); Estimated Glomerular Filt Rate 45.4 mL/min (>60); Globulin 3.4 g/dL (1.7-4.1); Glucose 171 mg/dL (80-110); HEMOLYSIS < 15 (0-50); Potassium 4.7 mmol/L (3.4-5.1); Sodium 138 mmol/L (137-145); Total Protein 7.1 g/dL (6.3-8.2)
[2019-12-17 14:10] LABS: NT-proBNP (BNP-Adult 18+) 21300 pg/mL (<125)
[2019-12-17 14:31] LABS: Digoxin 1.1 ng/mL (0.8-2.0)
[2019-12-17 14:56] LABS: Thyroid Stimulating Hormone 1.98 uIU/mL (0.47-4.68)
== END ==
PROVIDERS: PCP Family Medicine; Referring Provider Family Medicine; Visit Provider Family Medicine
DX: I48.91 Unspecified atrial fibrillation (principal); R06.02 Shortness of breath
CPT/HCPCS: 36415; 71046; 80053; 80162; 83036; 83880; 84443; 85025

== ENCOUNTER → 2020-01-01 14:49 | Outpatient (CLI) | payer MEDICARE, SELFPAY ==
[2019-04-09 18:35] VITALS: BMI 32.0
--- NOTE | 2020-01-01 14:55 | DI.ECHO.S_ITS ---
Echocardiogram Report + + :Name: RENETTA REGAN Study Date: 01/01/2020 Height: 75 in : :[facility] Exam Location: [facility] Weight: 285 lb : : Gender: Male BSA: 2.6 m2 : :: 1945 Age: 74 yrs BP: 118/80 mmHg: :Reason For Study: SOB : :Ordering Physician: Efrain Curiel Performed By: Wilma Page : + + Interpretation Summary 1) Severely enlarged left ventricle with severely reduced systolic function (EF 15-20%). 2) Severely enlarged right ventricle with mildly reduced systolic function. 3) Both atria are severely dilated. 4) There is mild to moderate mitral regurgitation. 5) There is mild to moderate tricuspid regurgitation. 6) The right ventricular systolic pressure is estimated to be at least 45 mmHg based on an estimated right atrial pressure of 15 mm Hg. 7) No prior Echo available for comparison. Procedure: A two-dimensional transthoracic echocardiogram with color flow and Doppler was performed. The study quality was technically adequate. Comparison is made with the echocardiogram of 12/18/2008. The heart rate ranged between 53-83 bpm during the study. Left Ventricle: The left ventricle is severely dilated. The left ventricle is grossly normal size. There is no thrombus. Left ventricular systolic function is severely reduced. The ejection fraction is estimated to be 15-20%. Right Ventricle: The right ventricle is severely dilated. Right ventricular systolic function is mildly reduced. Atria: Both atria are severely dilated. There is no Doppler evidence for an interatrial shunt. Mitral Valve: The mitral valve leaflets appear mildly thickened, but open well. There is mild to moderate mitral regurgitation. Aortic Valve: The aortic valve is trileaflet. The aortic valve opens well. The aortic valve is mildly calcified. There is no aortic valve stenosis. There is trace aortic regurgitation. Tricuspid Valve: The tricuspid annulus is dilated. There is mild to moderate tricuspid regurgitation. The right ventricular systolic pressure is estimated to be at least 45 mmHg based on an estimated right atrial pressure of 15 mm Hg. Pulmonic Valve: The pulmonic valve is not well seen, but is grossly normal. There is trace pulmonic regurgitation. Great Vessels: The aortic root is normal size. The ascending aorta is mildmoderately enlarged. The pulmonary artery is normal size. The IVC is dilated (diameter is greater than 2.1 cm) and it collapses less than 50% with a sniff. This suggests a high right atrial pressure of 15 mm Hg. Pericardium/ Pleura There is no pericardial effusion. There is no pleural effusion. MMode/2D Measurements & Calculations LVIDd: 7.2 cm LVOT diam: 2.4 cm LVIDs: 6.9 cm Ao root diam: 3.7 cm FS: 4.2 % asc Aorta Diam: 4.1 cm EPSS: 2.3 cm IVSd: 0.99 cm LVPWd: 0.79 cm LV ragland. diameter/BSA (cm/m^2): 2.8 LV sys. diameter/BSA (cm/m^2): 2.7 LA A2 area: 31.7 cm2 RA long axis: 6.4 cm LA A4 area: 33.1 cm2 RA area: 31.9 cm2 LA length (vol): 6.5 cm RA vol: 135.2 ml LA vol: 137.3 ml RA : 53.0 ml/m2 LA vol index: 53.8 ml/m2 IVC diam: 3.3 cm RVD1 (basal): 6.4 cm Doppler Measurements & Calculations Ao V2 max: 162.1 cm/sec LVOT Max Mac: 74.9 cm/sec Ao V2 mean: 119.9 cm/sec LV V1 max P.3 mmHg Ao max P.5 mmHg LV V1 VTI: 12.3 cm Ao mean P.2 mmHg MARTY(I,D): 2.3 cm2 Ao V2 VTI: 24.5 cm MARTY(V,D): 2.1 cm2 sev ratio: 0.50 MARTY indexed to BSA (cm^2/m^2): 0.90 MV E max mac: 76.2 cm/sec TR max mac: 273.1 cm/sec MV A max mac: 32.3 cm/sec TR max P.9 mmHg MV E/A: 2.4 PA V2 max: 44.6 cm/sec MV dec time: 0.12 sec PA V2 mean: 30.8 cm/sec PA mean P.42 mmHg PA pr(Accel): 38.5 mmHg SV(LVOT): 56.1 ml Reading Physician:04:24 PM
== END ==
PROVIDERS: PCP Family Medicine; Referring Provider Family Medicine; Visit Provider Family Medicine
DX: I08.1 Rheumatic disorders of both mitral and tricuspid valves (principal); I48.91 Unspecified atrial fibrillation; R06.02 Shortness of breath
CPT/HCPCS: 93306

== ENCOUNTER → 2020-02-27 16:09 | Outpatient (CLI) | payer MEDICARE, SELFPAY ==
[2020-02-12 16:08] VITALS: BMI 32.0
[2020-02-27 17:11] LABS: Hemoglobin A1C% w Est Avg Glu 7.1 % (4.0-6.0)
[2020-02-27 17:20] LABS: BUN Creatinine Ratio 25.4 (6-22); Blood Urea Nitrogen 50 mg/dL (9-20); Calcium 10.2 mg/dL (8.4-10.2); Carbon Dioxide 23 mmol/L (22-32); Chloride 103 mmol/L (98-107); Estimated Glomerular Filt Rate 33.4 mL/min (>60); Glucose 131 mg/dL (80-110); HEMOLYSIS < 15 (0-50); Potassium 4.9 mmol/L (3.4-5.1); Sodium 137 mmol/L (137-145)
== END ==
PROVIDERS: PCP Family Medicine; Referring Provider Internal Medicine Cardiovascular Disease; Visit Provider Family Medicine
DX: I42.0 Dilated cardiomyopathy (principal); R60.9 Edema, unspecified
CPT/HCPCS: 36415; 80048; 83036

== ENCOUNTER → 2020-03-06 15:20 | Outpatient (CLI) | payer MEDICARE, SELFPAY ==
[2020-02-12 16:08] VITALS: BMI 32.0
--- NOTE | 2020-03-06 15:24 | DI.RAD.S_ITS ---
PROCEDURE: XR HAND LT MIN 3V INDICATIONS: Pain TECHNIQUE: 3 views of the hand(s) acquired. COMPARISON: None. FINDINGS: No fracture. Diffuse interphalangeal joint degeneration. 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 Scattered vascular calcifications are noted. There is mild middle finger soft tissue swelling. Small marginal lucency seen at the DIP joint of the middle and ring finger. There is early hook like osteophyte formation in particular involving the 3rd metacarpal head IMPRESSION: Middle finger soft tissue swelling Early hook like osteophyte at 3rd metacarpal head raising the possibility of deposition arthropathy Diffuse left hand osteoarthritis, most severe at the 1st CMC joint. Small marginal lucencies at the DIP joints of the middle and ring fingers raising possibility of early erosions, technically age indeterminate. Approved by: Peter Rosenberg M.D. on 03/06/2020 at 15:59
== END ==
PROVIDERS: PCP Family Medicine; Referring Provider Family Medicine; Visit Provider Family Medicine
DX: M79.642 Pain in left hand (principal); M18.12 Unilateral primary osteoarthritis of first carpometacarpal joint, left hand; M19.042 Primary osteoarthritis, left hand
CPT/HCPCS: 73130

== ENCOUNTER → 2020-05-01 16:21 | Outpatient (CLI) | payer MEDICARE, SELFPAY ==
[2020-02-12 16:08] VITALS: BMI 32.0
[2020-05-01 17:24] LABS: Add Manual Diff / Slide Review NO; Basophils Absolute Auto 0 /uL (0-100); Basophils Percent Auto 0.3 % (0-2); Eosinophils Absolute Auto 200 /uL (0-450); Eosinophils Percent Auto 1.9 % (2-4); Hematocrit 36.7 % (41-53); Hemoglobin 12.6 g/dL (13.5-17.5); Lymphocytes Absolute Auto 2700 /uL (1100-4500); Lymphocytes Percent Auto 24.4 % (25-40); Mean Corpuscular HGB Conc 34.2 % (30-36); Mean Corpuscular Hemoglobin 30.3 PG (26-34); Mean Corpuscular Volume 88.7 fL (80-100); Monocytes Absolute Auto 1200 /uL (0-900); Monocytes Percent Auto 10.5 % (3-14); Neutrophils Absolute Auto 7000 /uL (1500-7000); Neutrophils Percent Auto 62.9 % (50-75); Platelet Count 229 X10^3/uL (150-400); Red Blood Cell Count 4.14 X10^6/uL (4.5-5.9); Red Cell Distribution Width 15.7 % (11.6-14.8); White Blood Cell Count 11.1 X10^3/uL (4.5-11.0)
[2020-05-01 17:52] LABS: Hemoglobin A1C% w Est Avg Glu 7.7 % (4.0-6.0)
[2020-05-01 17:53] LABS: Blood Urea Nitrogen 41 mg/dL (9-20); Calcium 9.6 mg/dL (8.4-10.2); Carbon Dioxide 29 mmol/L (22-32); Chloride 104 mmol/L (98-107); Cholesterol 135 mg/dL (140-199); Estimated Glomerular Filt Rate 41.3 mL/min (>60); Glucose 197 mg/dL (80-110); HDL Cholesterol 40 mg/dL (40-60); HEMOLYSIS < 15 (0-50); LDL Cholesterol Calculated 72 mg/dL (<100); Potassium 5.1 mmol/L (3.4-5.1); Sodium 137 mmol/L (137-145); Triglycerides 114 mg/dL (35-150)
== END ==
PROVIDERS: PCP Family Medicine; Referring Provider Internal Medicine Cardiovascular Disease; Visit Provider Internal Medicine Cardiovascular Disease
DX: I42.0 Dilated cardiomyopathy (principal); E78.5 Hyperlipidemia, unspecified; E11.9 Type 2 diabetes mellitus without complications
CPT/HCPCS: 36415; 80048; 80061; 83036; 85025

== ENCOUNTER → 2020-06-09 15:06 | Outpatient (CLI) | payer MEDICARE, SELFPAY ==
[2020-02-12 16:08] VITALS: BMI 32.0
--- NOTE | 2020-06-09 15:07 | DI.US.S_ITS ---
PROCEDURE: US RENAL COMPLETE INDICATIONS: Acute kidney failure, unspecified TECHNIQUE: Real-time scanning was performed of the kidneys and bladder, with image documentation. COMPARISON: None. FINDINGS: Kidneys: Kidneys are normal in size. Right kidney measures 11.7 cm long; left kidney measures 11.8 cm long. Right renal cortical thickness is 1.2 cm; left renal cortical thickness is 1.4 cm. Renal cortical echotexture is normal. No hydronephrosis or nephrolithiasis. No suspicious solid mass lesions. Left renal cyst measuring 18 mm. Bladder: Pre-void bladder volume is 154 mL. Post-void residual is 1.0 mL. Pre-void images demonstrate no intraluminal masses or stones. Miscellaneous: No free pelvic fluid. IMPRESSION: 1. Grossly normal appearance the kidneys bilaterally. 2. Left renal cyst. Dictated by: Keny Ling [facility] Interpreted: Gregory Orozco MD on 06/09/2020 at 16:44 Approved by: Gregory Orozco M.D. on 06/09/2020 at 17:22
[2020-06-09 15:22] LABS: Bacteria Urine None Seen
[2020-06-09 16:39] LABS: Appearance Urine UA CLEAR; Bilirubin Urine UA NEGATIVE (NEGATIVE); Color Urine UA YELLOW; Glucose Urine UA 1+ g/dL (Negative); Ketones Urine UA NEGATIVE (NEGATIVE); Leukocyte Esterase Urine UA NEGATIVE (NEGATIVE); Nitrite Urine UA NEGATIVE (Negative); Occult Blood Urine UA TRACE-LYSED (Negative); Protein Urine UA TRACE (Negative); Urobilinogen Urine UA 0.2 E.U./dL (0.2); pH Urine UA 5.5 (4.5-8.0)
[2020-06-09 16:49] LABS: Alanine Aminotransferase 25 IU/L (<50); Albumin Globulin Ratio 1.1 (1.0-2.8); Alkaline Phosphatase 113 U/L (38-126); Aspartate Aminotransferase 27 IU/L (17-59); BUN Creatinine Ratio 23.1 (6-22); Blood Urea Nitrogen 45 mg/dL (9-20); Carbon Dioxide 27 mmol/L (22-32); Chloride 101 mmol/L (98-107); Estimated Glomerular Filt Rate 33.8 mL/min (>60); Globulin 3.7 g/dL (1.7-4.1); Glucose 295 mg/dL (80-110); HEMOLYSIS < 15 (0-50); Potassium 4.7 mmol/L (3.4-5.1); Sodium 135 mmol/L (137-145); Total Protein 7.7 g/dL (6.3-8.2)
[2020-06-09 16:51] LABS: Calcium 9.6 mg/dL (8.4-10.2)
[2020-06-09 16:57] LABS: Creatinine Urine Random 130.3 mg/dL; Protein (Total) Urine Random 27 mg/dL (0-12)
[2020-06-09 17:41] LABS: Culture Indicated Urine Cult Not Indicated; Hyaline Casts Urine 1-5/LPF; RBC Urine 0-1/HPF (0-5/HPF); Squamous Epithelial Cell Urine 0-1 /HPF (0-5/HPF); WBC Urine 1-5/HPF (0-5/HPF)
[2020-06-10 06:36] LABS: Parathyroid Hormone Int 35 pg/mL (15-65)
== END ==
PROVIDERS: PCP Family Medicine; Referring Provider Internal Medicine Nephrology; Visit Provider Internal Medicine Nephrology
DX: N17.9 Acute kidney failure, unspecified (principal); N28.1 Cyst of kidney, acquired; I13.10 Hypertensive heart and chronic kidney disease without heart failure, with stage 1 through stage 4 chronic kidney disease, or unspecified chronic kidney disease; N18.9 Chronic kidney disease, unspecified
CPT/HCPCS: 36415; 76770; 80053; 81001; 82570; 83970; 84156

== ENCOUNTER → 2020-07-25 14:25 | Outpatient (CLI) | payer MEDICARE, SELFPAY ==
[2020-02-12 16:08] VITALS: BMI 32.0
--- NOTE | 2020-07-25 | DI.ECHO.S_ITS ---
[facility]---------+ [facility] +---------+ : : [address] [place] : : : : [id number] : : : : Phone: [phone]+ Echocardiogram Report + + :Name: RENETTA REGAN Study Date: 07/25/2020 Height: 75 in : :[facility] Weight: 250 lb : : Gender: Male BSA: 2.4 m2 : :: 1945 Age: 75 yrs BP: 115/62 mmHg: :Reason For Study: DILATED CM : : Performed By: Peter Feng : :Referring: JOON GIBBS : + + Interpretation Summary 1) Severely enlarged left ventricle with severely reduced systolic function (EF 20-25%). 2) Moderately to severely enlarged right ventricle with mildly reduced systolic function. 3) The left atrium is severely dilated. 4) There is mild aortic stenosis (valve area 1.7cm2, mean gradient 6.4mmHg). 5) Compared to the Echo done 01/01/2020, right sided hypervolemia has resolved on this study. Procedure: A two-dimensional transthoracic echocardiogram with color flow and Doppler was performed. The study quality was technically adequate. Comparison is made with the echocardiogram of 01/01/20. The patient was in atrial fibrillation with controlled ventricular rate during the exam. The patient had a heart rate of 66-94 beats per minute. Left Ventricle: There is normal left ventricular wall thickness. The left ventricle is severely dilated. The ejection fraction is estimated to be 20- 25%. There is severe global hypokinesis of the left ventricle. Right Ventricle: The right ventricle is moderate to severely dilated. Right ventricular systolic function is mildly reduced. Atria: The left atrium is severely dilated. The right atrium is moderately dilated. There is no Doppler evidence for an atrial septal defect. Mitral Valve: The mitral valve is normal in structure and function. There is trace mitral regurgitation. Aortic Valve: The aortic valve is trileaflet. The aortic valve is mildly calcified. There is discrete nodular thickening of the right coronary cusp. There is mildly reduced leaflet mobility. There is no hemodynamically significant valvular aortic stenosis. No aortic regurgitation is present. Tricuspid Valve: The tricuspid valve is normal in structure and function. There is trace tricuspid regurgitation. The right ventricular systolic pressure is estimated to be at least 21 mmHg based on an estimated right atrial pressure of 3 mm Hg. Pulmonic Valve: The pulmonic valve is not well seen, but is grossly normal. There is no pulmonic valvular regurgitation. Great Vessels: The aortic root is normal size. The ascending aorta is mildly enlarged. The pulmonary artery is normal size. The IVC is of normal diameter and collapses greater than 50% with a sniff. This suggests a low right atrial pressure of 3 mm Hg. Pericardium/ Pleura There is no pericardial effusion. There is no pleural effusion. MMode/2D Measurements & Calculations LVIDd: 6.8 cm LVOT diam: 2.1 cm LVIDs: 5.7 cm Ao root diam: 3.5 cm FS: 15.9 % asc Aorta Diam: 4.1 cm EPSS: 1.4 cm Ao Arch Diam (Prox Trans): 3.2 cm IVSd: 1.0 cm LVPWd: 0.92 cm LV ragland. diameter/BSA (cm/m^2): 2.8 LV sys. diameter/BSA (cm/m^2): 2.4 LA dimension: 4.5 cm RA long axis: 5.9 cm LA A2 area: 28.0 cm2 RA area: 26.3 cm2 LA A4 area: 32.2 cm2 RA vol: 99.4 ml LA length (vol): 6.5 cm RA : 41.2 ml/m2 LA vol: 118.5 ml IVC diam: 1.6 cm LA vol index: 49.1 ml/m2 RVD1 (basal): 5.4 cm RVD2 (mid): 5.7 cm TAPSE: 2.2 cm Doppler Measurements & Calculations Ao V2 max: 154.9 cm/sec LVOT Max Mac: 78.0 cm/sec Ao V2 mean: 122.4 cm/sec LV V1 max P.5 mmHg Ao max P.6 mmHg LV V1 VTI: 14.3 cm Ao mean P.4 mmHg MARTY(I,D): 1.6 cm2 Ao V2 VTI: 29.3 cm MARTY(V,D): 1.7 cm2 sev ratio: 0.49 MARTY indexed to BSA (cm^2/m^2): 0.68 MV E max mac: 54.8 cm/sec TR max mac: 211.6 cm/sec MV A max mac: 2.1 cm/sec TR max P.9 mmHg MV E/A: 26.5 PA V2 max: 58.9 cm/sec Med Peak E' Mac: 5.8 cm/sec PA V2 mean: 46.3 cm/sec E/E' med: 9.5 PA mean P.90 mmHg Lat Peak E' Mac: 5.1 cm/sec PA pr(Accel): 31.0 mmHg E/E' lat: 10.8 E/e' average: 10.1 MV dec time: 0.25 sec SV(LVOT): 47.9 ml Reading Physician:04:19 PM
== END ==
PROVIDERS: PCP Family Medicine; Referring Provider Internal Medicine Cardiovascular Disease; Visit Provider Internal Medicine Cardiovascular Disease
DX: I42.0 Dilated cardiomyopathy (principal); I77.89 Other specified disorders of arteries and arterioles
CPT/HCPCS: 93306

== ENCOUNTER → 2020-09-08 16:08 | Outpatient (CLI) | payer MEDICARE, SELFPAY ==
[2020-02-12 16:08] VITALS: BMI 32.0
[2020-09-08 16:50] LABS: Bacteria Urine None Seen
[2020-09-08 17:58] LABS: Alanine Aminotransferase 19 IU/L (<50); Albumin Globulin Ratio 1.2 (1.0-2.8); Alkaline Phosphatase 108 U/L (38-126); Aspartate Aminotransferase 22 IU/L (17-59); BUN Creatinine Ratio 18.5 (6-22); Bilirubin Total 0.7 mg/dL (0.2-1.3); Blood Urea Nitrogen 43 mg/dL (9-20); Calcium 9.7 mg/dL (8.4-10.2); Carbon Dioxide 25 mmol/L (22-32); Chloride 101 mmol/L (98-107); Estimated Glomerular Filt Rate 27.4 mL/min (>60); Globulin 3.3 g/dL (1.7-4.1); Glucose 320 mg/dL (80-110); HEMOLYSIS < 15 (0-50); Sodium 133 mmol/L (137-145); Total Protein 7.3 g/dL (6.3-8.2)
[2020-09-08 18:01] LABS: Potassium 5.8 mmol/L (3.4-5.1)
[2020-09-08 18:53] LABS: Appearance Urine UA CLEAR; Bilirubin Urine UA NEGATIVE (NEGATIVE); Color Urine UA YELLOW; Glucose Urine UA 2+ g/dL (Negative); Ketones Urine UA NEGATIVE (NEGATIVE); Leukocyte Esterase Urine UA NEGATIVE (NEGATIVE); Nitrite Urine UA NEGATIVE (Negative); Occult Blood Urine UA NEGATIVE (Negative); Protein Urine UA NEGATIVE (Negative); Specific Gravity Urine UA 1.015 (1.000-1.035); Urobilinogen Urine UA 0.2 E.U./dL (0.2)
[2020-09-08 19:19] LABS: Culture Indicated Urine Cult Not Indicated; Hyaline Casts Urine 1-5/LPF; Mucus Urine 1+ (Negative); RBC Urine 0-1/HPF (0-5/HPF); Squamous Epithelial Cell Urine 0-1 /HPF (0-5/HPF); WBC Urine 0-1/HPF (0-5/HPF)
[2020-09-08 19:33] LABS: Creatinine Urine Random 136.8 mg/dL; Protein (Total) Urine Random 22 mg/dL (0-12); Protein Creatinine Ratio Urine 0.16 GRAM/24H
[2020-09-09 07:43] LABS: Parathyroid Hormone Int 48 pg/mL (15-65)
== END ==
PROVIDERS: PCP Family Medicine; Referring Provider Internal Medicine Nephrology; Visit Provider Internal Medicine Nephrology
DX: N17.9 Acute kidney failure, unspecified (principal); N18.9 Chronic kidney disease, unspecified; I13.10 Hypertensive heart and chronic kidney disease without heart failure, with stage 1 through stage 4 chronic kidney disease, or unspecified chronic kidney disease
CPT/HCPCS: 36415; 80053; 81001; 82570; 83970; 84156

== ENCOUNTER → 2021-02-26 15:01 | Outpatient (CLI) | payer MEDICARE, SELFPAY ==
[2021-02-10 15:20] VITALS: BMI 32.0
--- NOTE | 2021-02-26 15:04 | DI.RAD.S_ITS ---
PROCEDURE: XR HIP W PEL IF DONE RT 2V INDICATIONS: right hip pain TECHNIQUE: AP pelvis with lateral view(s) of the 2 hip(s). COMPARISON: [facility], , XR HIP W PEL IF DONE LT 2V, 01/10/2019, 16:25. FINDINGS: Bones: No definite acute fracture although advanced arthritic changes limits study sensitivity. Severe lumbar spondylosis and facet arthropathy. Left hip arthroplasty in expected alignment. Severe right hip joint degeneration with [id number] appearance. Scattered degenerative subchondral sclerosis and spurring. Soft tissues: The visualized bowel gas pattern is normal. No suspicious soft tissue calcifications. Scattered vascular calcifications. IMPRESSION: Severe right hip joint degeneration. No slight interval progression since 01/10/19. Expected postoperative alignment of left hip arthroplasty. Dictated by: Peter Rosenberg M.D. on 02/26/2021 at 16:21 Approved by: Peter Rosenberg M.D. on 02/26/2021 at 16:24
== END ==
PROVIDERS: PCP Family Medicine; Referring Provider Family Medicine; Visit Provider Family Medicine
DX: M16.11 Unilateral primary osteoarthritis, right hip (principal); Z96.642 Presence of left artificial hip joint
CPT/HCPCS: 73502

== ENCOUNTER → 2021-03-02 15:23 | Outpatient (CLI) | payer MEDICARE, SELFPAY ==
[2021-02-10 15:20] VITALS: BMI 32.0
[2021-03-02 16:17] LABS: Add Manual Diff / Slide Review NO; Basophils Absolute Auto 0 /uL (0-100); Basophils Percent Auto 0.4 % (0-2); Eosinophils Absolute Auto 200 /uL (0-450); Hematocrit 40.1 % (41-53); Hemoglobin 13.5 g/dL (13.5-17.5); Lymphocytes Absolute Auto 2300 /uL (1100-4500); Lymphocytes Percent Auto 22.6 % (25-40); Mean Corpuscular HGB Conc 33.6 % (30-36); Mean Corpuscular Hemoglobin 29.5 PG (26-34); Mean Corpuscular Volume 87.8 fL (80-100); Monocytes Absolute Auto 1000 /uL (0-900); Monocytes Percent Auto 10.2 % (3-14); Neutrophils Absolute Auto 6500 /uL (1500-7000); Neutrophils Percent Auto 64.8 % (50-75); Platelet Count 201 X10^3/uL (150-400); Red Blood Cell Count 4.56 X10^6/uL (4.5-5.9); Red Cell Distribution Width 13.9 % (11.6-14.8)
[2021-03-02 16:56] LABS: Hemoglobin A1C% w Est Avg Glu 12.3 % (4.0-6.0)
[2021-03-02 16:58] LABS: Alanine Aminotransferase 17 IU/L (<50); Albumin 3.9 g/dL (3.5-5.0); Albumin Globulin Ratio 1.1 (1.0-2.8); Alkaline Phosphatase 91 U/L (38-126); Aspartate Aminotransferase 24 IU/L (17-59); BUN Creatinine Ratio 18.5 (6-22); Bilirubin Total 0.7 mg/dL (0.2-1.3); Blood Urea Nitrogen 44 mg/dL (9-20); Calcium 9.6 mg/dL (8.4-10.2); Carbon Dioxide 24 mmol/L (22-32); Chloride 101 mmol/L (98-107); Cholesterol 142 mg/dL (140-199); Estimated Glomerular Filt Rate 26.8 mL/min (>60); Globulin 3.5 g/dL (1.7-4.1); Glucose 288 mg/dL (80-110); HDL Cholesterol 30 mg/dL (40-60); HEMOLYSIS < 15 (0-50); LDL Cholesterol Calculated 67 mg/dL (<100); Potassium 4.8 mmol/L (3.4-5.1); Sodium 133 mmol/L (137-145); Total Protein 7.4 g/dL (6.3-8.2); Triglycerides 224 mg/dL (35-150)
[2021-03-02 17:33] LABS: Prostate Specific Antigen Scrn 0.583 ng/mL (0.1-4.0)
[2021-03-02 17:34] LABS: TSH w/ Reflex to FT4 0.97 uIU/mL (0.47-4.68)
== END ==
PROVIDERS: Family Medicine; PCP Family Medicine; Referring Provider Family Medicine; Visit Provider Family Medicine
DX: E11.9 Type 2 diabetes mellitus without complications (principal); Z12.5 Encounter for screening for malignant neoplasm of prostate; I10 Essential (primary) hypertension; N19 Unspecified kidney failure; R60.9 Edema, unspecified; E78.2 Mixed hyperlipidemia; I42.0 Dilated cardiomyopathy
CPT/HCPCS: 36415; 80053; 80061; 83036; 84443; 85025; G0103

== ENCOUNTER → 2022-07-21 12:32 | Outpatient (CLI) | payer MEDICARE, SELFPAY ==
[2021-02-10 15:20] VITALS: BMI 32.0
[2022-07-21 13:26] LABS: Add Manual Diff / Slide Review NO; Basophils Absolute Auto 0 /uL (0-100); Basophils Percent Auto 0.3 % (0-2); Eosinophils Absolute Auto 400 /uL (0-450); Eosinophils Percent Auto 2.6 % (2-4); Hematocrit 39.2 % (41-53); Hemoglobin 12.9 g/dL (13.5-17.5); Lymphocytes Absolute Auto 2400 /uL (1100-4500); Lymphocytes Percent Auto 17.7 % (25-40); Mean Corpuscular Hemoglobin 28.9 PG (26-34); Mean Corpuscular Volume 87.7 fL (80-100); Monocytes Absolute Auto 1300 /uL (0-900); Monocytes Percent Auto 9.7 % (3-14); Neutrophils Absolute Auto 9600 /uL (1500-7000); Neutrophils Percent Auto 69.7 % (50-75); Platelet Count 248 X10^3/uL (150-400); Red Blood Cell Count 4.47 X10^6/uL (4.5-5.9); Red Cell Distribution Width 13.5 % (11.6-14.8); White Blood Cell Count 13.7 X10^3/uL (4.5-11.0)
[2022-07-21 13:45] LABS: Hemoglobin A1C% w Est Avg Glu 7.8 % (4.0-6.0)
[2022-07-21 13:50] LABS: Appearance Urine UA CLEAR; Bilirubin Urine UA NEGATIVE (NEGATIVE); Color Urine UA YELLOW; Glucose Urine UA NEGATIVE (Negative); Ketones Urine UA NEGATIVE (NEGATIVE); Leukocyte Esterase Urine UA NEGATIVE (NEGATIVE); Nitrite Urine UA NEGATIVE (Negative); Occult Blood Urine UA TRACE-LYSED (Negative); Protein Urine UA 1+ (Negative); Urobilinogen Urine UA 0.2 E.U./dL (0.2); pH Urine UA 6.5 (4.5-8.0)
[2022-07-21 13:59] LABS: INR 2.6 (0.9-1.3); Prothrombin Time 30.6 SECONDS (10.1-12.7)
[2022-07-21 14:01] LABS: Bacteria Urine None Seen; Culture Indicated Urine Cult Not Indicated; RBC Urine None Seen (0-5/HPF); Urine Comments Microscopic Normal; WBC Urine None Seen (0-5/HPF)
[2022-07-21 14:04] LABS: Blood Urea Nitrogen 27 mg/dL (9-20); Calcium 9.1 mg/dL (8.4-10.2); Carbon Dioxide 24 mmol/L (22-32); Chloride 99 mmol/L (98-107); Estimated Glomerular Filt Rate 29 mL/min (>60); Glucose 148 mg/dL (80-110); HEMOLYSIS < 15 (0-50); Potassium 4.8 mmol/L (3.4-5.1); Sodium 135 mmol/L (137-145)
== END ==
PROVIDERS: PCP Family Medicine; Referring Provider Orthopaedic Surgery; Visit Provider Orthopaedic Surgery
DX: Z01.818 Encounter for other preprocedural examination (principal); Z51.81 Encounter for therapeutic drug level monitoring; R73.9 Hyperglycemia, unspecified; Z01.812 Encounter for preprocedural laboratory examination; N39.0 Urinary tract infection, site not specified
CPT/HCPCS: 36415; 80048; 81001; 83036; 85025; 85610; 93005; 93010